=== PATIENT | male | born 1960 | race Caucasian/White ===

== ENCOUNTER → 2018-02-23 09:47 | Outpatient (CLI) | payer BC, SELFPAY ==
[2018-02-23 13:25] LABS: Basophils % 0.4 % (0.1-2.0); Eosinophils # 0.1 K/mm3 (0.0-0.4); Eosinophils % 1.6 % (0.1-12.0); Hematocrit 42.4 % (42.0-52.0); Hemoglobin 14.2 g/dL (14.1-18.0); Lymphocytes # 1.7 K/mm3 (0.7-4.5); Lymphocytes % 29.3 K/mm3 (10-50); Mean Corpuscular HGB Conc 33.5 g/dL (31.8-35.4); Mean Corpuscular Volume 92.5 fl (80-94); Mean Platelet Volume 6.8 fl (7.4-10.4); Monocytes # 0.4 K/mm3 (0.1-1.0); Neutrophils # 3.6 K/mm3 (1.8-7.8); Neutrophils % 62.7 % (37.0-80.0); Platelet Count 346 K/mm3 (142-424); Red Blood Count 4.58 M/mm3 (4.60-6.20); Red Cell Distribution Width 13.3 % (11.5-17.5); White Blood Count 5.7 K/mm3 (4.8-10.8)
[2018-02-23 14:02] LABS: Alanine Aminotransferase 52 U/L (12-78); Albumin Level 3.5 gm/dL (3.4-5.0); Alkaline Phosphatase 97 U/L (46-116); Anion Gap 12.1 mEq/L (5-15); Aspartate Amino Transferase 28 U/L (15-37); Bilirubin,Direct 0.2 mg/dL (0.0-0.2); Bilirubin,Indirect 0.2 mg/dL (0.0-0.9); Bilirubin,Total 0.4 mg/dL (0.2-1.0); Blood Urea Nitrogen 17 mg/dL (7-18); Carbon Dioxide 28 mmol/L (21.0-32.0); Chloride 106 mmol/L (98-107); Cholesterol 128 mg/dL (140-200); Creatinine,Serum 0.82 mg/dL (0.70-1.30); Estimated Glomerular Filt Rate 96 ml/min (>60); GFR (African American) 117 ML/MIN (>60); Glucose 124 mg/dL (74-106); HDL Cholesterol 42 mg/dL (27-67); LDL Cholesterol 76 mg/dL (0-130); Potassium 4.1 mmoL/L (3.5-5.1); Sodium 142 mmol/L (136-145); Total Protein,Serum 6.4 gm/dL (6.4-8.2); Triglycerides 49 mg/dL (30-200); VLDL Cholesterol 10 mg/dL (0-40)
== END ==
PROVIDERS: Visit Provider Internal Medicine
DX: I25.10 Atherosclerotic heart disease of native coronary artery without angina pectoris (principal); E11.9 Type 2 diabetes mellitus without complications; I10 Essential (primary) hypertension; E78.5 Hyperlipidemia, unspecified
CPT/HCPCS: 36415; 80048; 80061; 80076; 85025

== ENCOUNTER → 2018-09-07 07:18 | Outpatient (CLI) | payer BC, SELFPAY ==
--- NOTE | 2018-09-07 07:20 | CA_ITS ---
PROCEDURE: 2-D M-mode and color Doppler study INDICATIONS FOR THE TEST: Chest pain COPD Heart Murmur Tobacco Smoking Palpitations Fatigue Syncope Edema Hypertension+Diabetes Mellitus+ Rheumatic Fever SOB+CHAMBERS+Obesity Hyperlipidemia+ Family History HD Additional History PATIENT INFORMATION HEIGHT: 63 WEIGHT:159 GENDER: Male B/P:105/57 2-D/M-MODE INTERPRETATION: 2-D MEASUREMENTS OBSERVED VALUES IN CMS Right Ventricular Dimension (RVDd) 2.2 Interventricular Septum (Thickness)(IVsd) 1.0 Left Ventricular Internal Dimensions(LVIDd) 5.0 Left Ventricular Posterior Wall (Thickness)(LVPWd) 0.8 Aortic Root 2.8 Aortic Cusp Separation 2.0 Left Atrial Dimensions (LAD) 3.6 2D 1. Left atrium is mildly enlarged, left ventricle is normal size, mild qualitative concentric left ventricular hypertrophy, visually estimated ejection fraction 45%, there is moderate hypokinesis involving mid to distal septum, apical and anteroapical wall. 2. The right atrium and right ventricle are normal size and contractility. 3. The aortic valve is thickened and calcified leaflet continue to display mobility. 4. The mitral and tricuspid valvular grossly normal. 5. The pulmonic valve is poorly visualized. 6. No significant pericardial effusion noted. DOPPLER INTERROGATION: Doppler interrogation of the aortic, mitral and tricuspid valvular presence of mild mitral and tricuspid regurgitation, tricuspid regurgitation jet velocity is inadequate for calculation of the right ventricular systolic pressure, grade 1 diastolic dysfunction seen without tissue Doppler evidence of raised left atrial pressure. CONCLUSION: 1. Mildly enlarged left atrium, normal left ventricular size, mild qualitative concentric left ventricular hypertrophy, visually estimated ejection fraction 45% with segmental wall motion abnormality described above, grade 1 diastolic dysfunction seen without tissue Doppler evidence of raised left atrial pressure. 2. Mild mitral and tricuspid regurgitation 3. No significant pericardial effusion noted.
--- NOTE | 2018-09-07 07:20 | NM_ITS ---
CARDIOLITE SPECT MYOCARDIAL PERFUSION SCAN, REST AND STRESS: EXERCISE STRESS [facility] REVIEW QGS EF AND WALL MOTION EVALUATION: QPS - PERFUSION EVALUATION HISTORY: SOB, HTN, DM, CAD DOSE: 10.15 mCi technetium 99m mibi intravenously at rest followed by 31.2 mCi technetium 99m mibi following the intravenous ministration of 0.4 mg of Lexiscan. Resting blood pressure is 110/64. Stress blood pressure 108/70. FINDINGS: Ejection fraction is calculated to be 45%. Stress images reveal severely decreased activity through the anterior wall the apex and most of the septum. Rest images reveal mild improvement in the septum and a portion of the anterior wall. Gated images calculated ejection fraction of 45% with anterior apical and inferior apical hypokinesis. IMPRESSION: Previous nearly complete extensive anterior apical infarction with a small degree of reversible ischemia associated with large regional wall motion abnormality and reduced ejection fraction. High risk abnormal stress test with clinical correlation required
--- NOTE | 2018-09-07 07:44 | HMH.ITSHM ---
Current Home Medications as stated by this patient Zhane Bryant or open claims representative. []SPIRONOLACTONE RANITIDINE NITROGLYCERIN METOPROLOL METFORMIN LISINOPRIL LEVOTHYROXINE FUROSEMIDE CLOPIDOGREL ATORVASTATIN ASA
== END ==
PROVIDERS: PCP Physician Assistant; Visit Provider Internal Medicine
DX: I25.10 Atherosclerotic heart disease of native coronary artery without angina pectoris (principal); R06.09 Other forms of dyspnea; I42.9 Cardiomyopathy, unspecified; E11.9 Type 2 diabetes mellitus without complications; E78.5 Hyperlipidemia, unspecified; I10 Essential (primary) hypertension; Z95.5 Presence of coronary angioplasty implant and graft
CPT/HCPCS: 78452; 93017; 93306; A9502; J2785

== ENCOUNTER → 2018-09-13 13:55 | Outpatient (CLI) | payer BC, SELFPAY ==
--- NOTE | 2018-09-13 14:11 | XR_ITS ---
XR chest 2V HISTORY: ITS.REASON: Heart disease, cardiac stents ORDERING PHYSICIAN: Hank Ramirez MD PATIENT AGE: 58 years COMPARISON: 01/05/2017 FINDINGS: A BELT MACHINE OPERATOR shunt traverses the right hemithorax. There is mild cardiomegaly. No evidence of CHF. Lungs are clear bilaterally. No acute bony anomaly. IMPRESSION: Overall no change mild cardiomegaly without failure. BELT MACHINE OPERATOR shunt on the right
[2018-09-13 14:12] LABS: Basophils % 0.5 % (0.1-2.0); Eosinophils # 0.1 K/mm3 (0.0-0.4); Eosinophils % 1.5 % (0.1-12.0); Hematocrit 42.3 % (42.0-52.0); Hemoglobin 13.8 g/dL (14.1-18.0); Lymphocytes # 1.8 K/mm3 (0.7-4.5); Lymphocytes % 27.7 % (10-50); Mean Corpuscular HGB Conc 32.6 g/dL (31.8-35.4); Mean Corpuscular Hemoglobin 30.4 pg (27.0-31.2); Mean Corpuscular Volume 93.2 fl (80-94); Mean Platelet Volume 6.8 fl (7.4-10.4); Monocytes # 0.3 K/mm3 (0.1-1.0); Monocytes % 4.9 % (1.7-9.3); Neutrophils # 4.2 K/mm3 (1.8-7.8); Neutrophils % 65.5 % (37.0-80.0); Platelet Count 348 K/mm3 (142-424); Red Blood Count 4.54 M/mm3 (4.60-6.20); Red Cell Distribution Width 13.9 % (11.5-17.5); White Blood Count 6.4 K/mm3 (4.8-10.8)
[2018-09-13 15:30] LABS: Alanine Aminotransferase 47 U/L (12-78); Albumin Level 3.4 gm/dL (3.4-5.0); Alkaline Phosphatase 108 U/L (46-116); Anion Gap 14.5 mEq/L (5-15); Aspartate Amino Transferase 24 U/L (15-37); Bilirubin,Direct 0.1 mg/dL (0.0-0.2); Bilirubin,Indirect 0.2 mg/dL (0.0-0.9); Bilirubin,Total 0.3 mg/dL (0.2-1.0); Blood Urea Nitrogen 14 mg/dL (7-18); Calcium 8.6 mg/dL (8.5-10.1); Carbon Dioxide 28 mmol/L (21.0-32.0); Chloride 101 mmol/L (98-107); Creatinine,Serum 0.93 mg/dL (0.70-1.30); Estimated Glomerular Filt Rate 83 ml/min (>60); Free T4 (Free Thyroxine) 1.05 ng/dl (0.76-1.46); GFR (African American) 101 ML/MIN (>60); Glucose 144 mg/dL (74-106); Potassium 3.5 mmoL/L (3.5-5.1); Sodium 140 mmol/L (136-145); Thyroid Stimulating Hormone 2.66 uIU/ml (0.358-3.740); Total Protein,Serum 6.5 gm/dL (6.4-8.2)
== END ==
PROVIDERS: PCP Physician Assistant; Visit Provider Internal Medicine
DX: I25.10 Atherosclerotic heart disease of native coronary artery without angina pectoris (principal); R06.02 Shortness of breath
CPT/HCPCS: 36415; 71046; 80048; 80076; 83880; 84439; 84443; 85025

== ENCOUNTER → 2018-09-23 12:54 | Outpatient (CLI) | payer BC, SELFPAY ==
--- NOTE | 2018-09-23 12:55 | US_ITS ---
US Arterial Ankle Brachial Ind History: Leg pain, claudication, previous smoker, hypertension ORDERING PHYSICIAN: Hank Ramirez MD PATIENT AGE: 58 years TECHNIQUE: Segmental pressures obtained of both right and left leg. These are compared to brachial blood pressure to yield index at each level sampled including summary BLANQUITA. The data sheets from the procedure are available in PACS FINDINGS Rest study only performed today No prior studies available for comparison. Blood pressures reported are in millimeters mercury. RIGHT LEG BLANQUITA = 1.3. RIGHT LEG TBI=0.9 Brachial BP: 107 Thigh BP: 1:15 Calf BP: 104 Ankle PT: 138 Ankle DP : 120 Digit =101 LEFT LEG BLANQUITA = 1.3 LEFT LEG TBI= 0.8 Brachial BPD: 107 Thigh BP: 112 Calf BP: 124 Ankle PT:143 Ankle DP: 136 Digit = 86 Pulses and waveforms: Normal IMPRESSION: The ABIs as reported above are within normal limits. Waveforms and pulses are also unremarkable.
== END ==
PROVIDERS: PCP Physician Assistant; Visit Provider Internal Medicine
DX: M79.604 Pain in right leg (principal); M79.605 Pain in left leg
CPT/HCPCS: 93922

== ENCOUNTER → 2018-10-11 10:37 | Outpatient (CLI) | payer BC, SELFPAY ==
[2018-10-11 12:08] LABS: Anion Gap 12.6 mEq/L (5-15); Blood Urea Nitrogen 16 mg/dL (7-18); Calcium 8.7 mg/dL (8.5-10.1); Carbon Dioxide 29 mmol/L (21.0-32.0); Chloride 104 mmol/L (98-107); Creatinine,Serum 0.92 mg/dL (0.70-1.30); Estimated Glomerular Filt Rate 84 ml/min (>60); GFR (African American) 102 ML/MIN (>60); Glucose 98 mg/dL (74-106); Potassium 4.6 mmoL/L (3.5-5.1); Sodium 141 mmol/L (136-145)
== END ==
PROVIDERS: Visit Provider Internal Medicine
DX: I25.10 Atherosclerotic heart disease of native coronary artery without angina pectoris (principal)
CPT/HCPCS: 36415; 80048

== ENCOUNTER → 2019-11-10 10:36 | Outpatient (CLI) | payer BC, SELFPAY ==
--- NOTE | 2019-11-10 10:37 | CA_ITS ---
APPROVED REPORT EXAM: Comprehensive 2D, Doppler, and color-flow Echocardiogram Goggles Assembler: Kacy Casper CRT Ht: 5 ft 4 in Wt: 167lbs BSA: 1.81 BP: 103/70 mmHg Indications: Diabetes, CAD, Hyperlipidemia, Cardiomyopathy, Hypertension/HDD 2D Dimensions LVOT 2.14 cm (M/F) 1.5-2.5 M-Mode Dimensions RVDd 2.37 cm (0.9-2.6) LVDd 4.73 cm (3.5-5.7) LVDs 3.37 cm (3.5-5.7) IVSd 1.29 cm (0.6-1.1) PWd 0.91 cm (0.6-1.1) EF (Teich) 55.30% FS 28.80% EDV (Teich) 103.90 mL ESV (Teich) 46.40 mL LV Diastology E/A Ratio 0.94 Mitral Valve MV A Velocity 50.00 (40-130 cm/s) Left Ventricle Left atrium is mildly enlarged, left ventricle is mildly dilated, mild concentric left ventricular hypertrophy, visually estimated ejection fraction 30%, there is marked hypokinesis involving the mid to distal septum, anterior and anterior apical wall. Grade 1 diastolic dysfunction seen without tissue Doppler evidence of raise left atrial pressure. Right Ventricle Right atrium right ventricular normal size and contractility. Aortic Valve Aortic valve is minimally thickened and fibrosed there is no aortic stenosis aortic insufficiency. Mitral Valve Mitral valve is grossly normal, there is mild mitral regurgitation. Tricuspid Valve Tricuspid valve grossly normal, there is mild tricuspid regurgitation. Pulmonic Valve Pulmonic valve is poorly visualized. Great Vessels Aortic root is normal size. Pericardium No significant pericardial effusion noted. Conclusion 1. Mildly enlarged left atrium, mildly dilated left ventricle, visually estimated ejection fraction 30% with multiple segmental wall motion abnormality described above, grade 1 diastolic dysfunction seen without tissue Doppler evidence of raise left atrial pressure. 2. Mild mitral and tricuspid regurgitation. 3. No significant pericardial effusion noted. Electronically signed by : Jarad Cotter, 11/10/2019 20:05:05
== END ==
PROVIDERS: PCP Nurse Practitioner Family; Visit Provider Urology
DX: I25.5 Ischemic cardiomyopathy (principal); I10 Essential (primary) hypertension; I25.10 Atherosclerotic heart disease of native coronary artery without angina pectoris
CPT/HCPCS: 93306

== ENCOUNTER 2024-07-04 12:46 | Outpatient (CLI) | payer MEDICARE, MEDICAID, SELFPAY ==
--- NOTE | 2024-07-04 12:54 | CA_ITS ---
APPROVED REPORT EXAM: Comprehensive 2D, Doppler, and color-flow Echocardiogram Stroke Belt Sander Operator: Clemencia Archibald, SABIHA, RVS Ht: 5 ft 4 in Wt: 148lbs BSA: 1.72 BP: 104/71 mmHg Indications: Heart failure, CAD, CM, AICD, DM, HTN, HLD 2D Dimensions IVSd 0.80 cm M: 0.6-1.2 LVEF (Visual) 53.70 % PWd 0.85 cm M: 0.6 - 1.2 EF AP4 53.00 % LVDd 4.50 cm M: 4.2 - 5.9 GL Strain -12.0 % LVDs 3.26 cm M: 2.5 - 4.0 Left Atrium 3.43 cm M: 3.0 - 4.0 M-Mode Dimensions RVDd 1.67 cm (0.9-2.6) LA Diam 3.89 cm (1.9-4.0) LVDd 5.24 cm (3.5-5.7) LVDs 4.08 cm (3.5-5.7) IVSd 0.88 cm (0.6-1.1) PWd 0.71 cm (0.6-1.1) EF (Teich) 39.10% EPSs 0.99 cm FS 19.00% EDV (Teich) 120.50 mL TAPSE 2.10 (<1.7) ESV (Teich) 73.40 mL LV Diastology E Decel Time 197 (160-240 msec) E/A Ratio 0.88 MED A' 10.50 cm/s LAT A' 11.20 cm/s Aortic Valve JEREMÍAS Index 1.66 cm2/m2 AoV Peak Gume. 106.0 (50-130 cm/s) AO Peak GR. 4.50 mmHg AO Mean GR. 2.30 (<5 mmHg) AO VTI 19.1 (18-25 cm) JEREMÍAS (VTI) 2.92 (2.5-4.5 cm2) Mitral Valve MV A Velocity 60.0 (40-130 cm/s) E/A Ratio 0.88 Tricuspid Valve TR P. Velocity 272.00 cm/s Left Ventricle The left ventricle is normal size. Left ventricular systolic function is mild to moderately decreased. There is increased LV wall thickness. There is mild to moderate global hypokinesis present. The septum is asynchronous. Grade 1 diastolic dysfunction is present. LVEF is 40%. Right Ventricle The right ventricle is normal size. Right ventricle is mildly hypokinetic. There is a device lead present in the right ventricle. Atria The left atrium size is normal. The right atrium size is normal. There is no Doppler evidence of interatrial shunt. Aortic Valve The aortic valve opens well. There is no aortic valvular stenosis. No aortic regurgitation is present. Mitral Valve The mitral valve is normal in structure. No evidence of mitral valve stenosis. Mild mitral regurgitation. Tricuspid Valve The tricuspid valve leaflets are thin and pliable. Trace tricuspid regurgitation. RVSP is 20-25 mmHg. Pulmonic Valve The pulmonary valve is normal in structure. Trace pulmonic regurgitation. Great Vessels The aortic root is normal in size. The ascending aorta is normal in size. IVC is normal in size and collapses >50% with inspiration. Pericardium There is no pericardial effusion. Other Information Study Quality: Fair Conclusion Mild to moderate reduction in LV systolic function (LVEF 40%). Normal RV size with mildly reduced RV function. Mild MR. Electronically signed by : Bridgett Cole MD 07/10/2024 13:19:15
== END 2024-07-04 23:59 | disposition home or self-care (01) ==
LOC: RT 12:47
PROVIDERS: PCP Emergency Medicine; Visit Provider Physician Assistant
DX: I34.0 Nonrheumatic mitral (valve) insufficiency (principal); I11.0 Hypertensive heart disease with heart failure; I25.10 Atherosclerotic heart disease of native coronary artery without angina pectoris; I50.20 Unspecified systolic (congestive) heart failure; Z95.5 Presence of coronary angioplasty implant and graft; Z95.810 Presence of automatic (implantable) cardiac defibrillator
CPT/HCPCS: 93306